=== PATIENT | male | born 1995 | race Caucasian/White ===

== ENCOUNTER 2018-03-07 19:59 | Observation (INO) | payer BC ==
[~2018-03-07 19:59] MED LIST: ISOVUE-370 76%-LOCM 1 ML ONE
[2018-03-07 20:42] LABS: #Lymphocytes 1.1 thou/uL (1.20-3.40); #Monocytes 0.6 thou/uL (0.11-0.59); #Neutrophils 12.3 thou/uL (1.40-6.50); %Basophils 0.1 % (0.0-1.0); %Eosinophils 0.2 % (0.0-10.0); %Lymphocytes 7.6 % (21.0-51.0); %Monocytes 4.4 % (0.0-10.0); %Neutrophils 87.7 % (42.0-75.0); Hemoglobin 15.8 g/dL (14.0-18.0); Mean Corpuscular HGB CONC 33.7 g/dL (32.0-36.0); Mean Corpuscular Hemoglobin 29.7 pg (27.0-31.0); Mean Corpuscular Volume 88.2 fl (80.0-94.0); Mean Platelet Volume 7.1 fL (7.4-10.4); Platelet Count 241 thou/uL (130-400); RBC Distribution Width 11.5 % (11.5-14.5); Red Blood Cell (RBC) Count 5.33 mill/uL (4.70-6.10)
[2018-03-07 20:45] LABS: Bilirubin Negative (Negative); Blood, Urine Negative (Negative); Clarity CLEAR (Clear); Glucose, Urine (Dipstick) 100 mg/dL (Negative); Leukocyte Negative (Negative); Nitrite Negative (Negative); Protein, Urine (Dipstick) Trace mg/dL (Neg-Trace); Specific Gravity, Urine 1.025 (1.002-1.036); Urobilinogen 0.2 mg/dL (0.2-1.0)
[2018-03-07 21:08] LABS: ALT (SGPT) 26 U/L (8-55); AST (SGOT) 21 U/L (5-34); Albumin 5.2 g/dL (3.5-5.0); Alkaline Phosphatase 69 U/L (40-150); Anion Gap 12 mmol/L (10-20); BUN (Urea Nitrogen) 11 mg/dL (8.9-20.6); Bilirubin, Total 0.5 mg/dL (0.2-1.2); Calc. Creatinine Clearance 0 mL/min (70-130); Calcium 9.9 mg/dL (7.8-10.44); Carbon Dioxide 26 mmol/L (22-29); Chloride 99 mmol/L (98-107); Estimated GFR-MDRD 90; Globulin 3.6 g/dL (2.4-3.5); Glucose 125 mg/dL (70-105); Lipase 10 U/L (8-78); Potassium 3.6 mmol/L (3.5-5.1); Protein, Total 8.8 g/dL (6.0-8.3); Sodium 133 mmol/L (136-145)
--- NOTE | 2018-03-07 21:43 | CT ---
CONTRAST ENHANCED CT ABDOMEN AND PELVIS: History: Abdominal pain. Referring physician instructed that only IV contrast should be given. FINDINGS: The lung bases are unremarkable. No evidence of free intraperitoneal air is seen. The liver and spleen are unremarkable. The gallbladder and pancreas are unremarkable. Adrenal glands and kidneys are unremarkable. No evidence of periaortic lymphadenopathy is seen. There is approximately 5.2 mm appendicolith. There is an associated apparently dilated appendix measuring up to 10.4 mm. The appendix appears to be dil ated distal to the appendicolith. A small amount of free pelvic fluid is seen. No obvious evidence of abscess is seen. IMPRESSION: 1. Appendicolith with apparently dilated appendix compatible with acute appendicitis. There does appe ar to be a small amount of free pelvic fluid. POS: FILI
[2018-03-07] MEDS ORDERED: Morphine 4 MG/ML VIAL ONE (21:54)
[2018-03-07] MEDS ORDERED: Piperacillin/Tazobactam 3.375 GM VIAL ONE (21:54)
[2018-03-07] MEDS: Sodium Chloride 0.9% 1,000 ML IV SCH (23:00)
[2018-03-07] MEDS ORDERED: Ondansetron HCl/PF 4 MG/2 ML Vial IVP PRN (23:00)
[2018-03-07] MEDS ORDERED: Ondansetron ODT 4 MG TAB SL PRN (23:00)
[2018-03-07] MEDS ORDERED: Morphine 4 MG/ML VIAL SLOW IVP PRN ×2 (23:01→23:02)
[2018-03-07] MEDS ORDERED: Acetaminophen 1,000 MG in Premix Bag 1 BAG IVPB PRN (23:02)
[2018-03-08] MEDS ORDERED: Piperacillin/Tazobactam 3.375 GM in Sodium Chloride 0.9% 100 ML IVPB SCH ×2 (04:00→11:00)
[2018-03-08] MEDS ORDERED: Bupivacaine/Epinephrine 0.25% 30 ML VIAL ONE (06:38)
[2018-03-08 07:07] VITALS: BMI 21.4
--- NOTE | 2018-03-08 07:39 | HP ---
CHIEF COMPLAINT: Right lower quadrant pain. HISTORY OF PRESENT ILLNESS: This is a 22-year-old male who is a student who presents with a history of pain in his right lower quadrant that started yesterday, associated with nausea, no vomiting, no f damari or chills. He has never had this pain before. He denies a history of chronic abdominal pain. He was seen in the [facility] and a CT scan reveals acute appendicitis, nonperforated . PAST MEDICAL HISTORY: He denies. PAST SURGICAL HISTORY: He denies. MEDICINES TAKEN DAILY: None. ALLERGIES: None. SOCIAL HISTORY: No smoking, alcohol or other drugs. REVIEW OF SYSTEMS: Ten system review of systems otherwise negative unless described above. FAMILY HISTORY: There is no family history of GI malignancy or anesthetic related complication. PHYSICAL EXAMINATION: HEENT: Sclerae are anicteric. Oropharynx clear. NECK: No lymphadenopathy. CHEST: Clear. HEART: Regular rate and rhythm. ABDOMEN: Soft, tender right lower quadrant, localized guarding, no rebound, no abdominal hernias. EXTREMITIES: No ischemia or edema to extremities. LABORATORY AND X-RAY FINDINGS: CT scan reveals acute appendicitis with appendicolith. ASSESSMENT: Acute appendicitis. PLAN: Laparoscopic appendectomy. Risks, benefits, alternatives discussed. He gives consent. We wi ll do this today.
[2018-03-08] MEDS ORDERED: Midazolam HCl 2 mg/2 ml Vial ONE (08:37)
[2018-03-08] MEDS ORDERED: Fentanyl 100 MCG/2 ML VIAL ONE (08:37)
[2018-03-08] MEDS ORDERED: Ondansetron HCl/PF 4 MG/2 ML Vial IVP PRN ×2 (09:32→10:22)
[2018-03-08] MEDS ORDERED: Promethazine HCl 25 MG/ML VIAL IM PRN ×2 (09:32→10:22)
[2018-03-08] MEDS ORDERED: Promethazine HCl 25 MG/ML VIAL SLOW IVP PRN (09:32)
[2018-03-08] MEDS: Sodium Chloride 0.9% 1,000 ML IV SCH (10:21)
[2018-03-08] MEDS ORDERED: Morphine 4 MG/ML VIAL SLOW IVP PRN ×2 (10:22)
[2018-03-08] MEDS ORDERED: Sodium Chloride 0.9% 1,000 ML IV SCH (10:22)
[2018-03-08] MEDS ORDERED: HYDROcodone/Acetaminophen 10/325 mg Tablet PO PRN ×2 (10:22)
[2018-03-08] MEDS ORDERED: Dextrose 50% Abboject 50 ML SYRINGE SLOW IVP PRN (10:22)
[2018-03-08] MEDS ORDERED: Dextrose 5% in Water 1,000 ML IV PRN (10:22)
[2018-03-08] MEDS ORDERED: hydrALAZINE 20 MG/ML VIAL SLOW IVP PRN (10:22)
[2018-03-08] MEDS ORDERED: Succinylcholine Chloride 20 MG/ML 10 ml SYRINGE FS ONE (11:06)
[2018-03-08] MEDS ORDERED: Glycopyrrolate 0.2 MG/ML 5 ML SYRINGE ONE (11:06)
[2018-03-08] MEDS ORDERED: Ondansetron HCl/PF 4 MG/2 ML Vial ONE (11:06)
[2018-03-08] MEDS ORDERED: Ketorolac Tromethamine 30 MG/ML VIAL ONE (11:06)
[2018-03-08] MEDS ORDERED: Dexamethasone 20 MG/5 ML VIAL ONE (11:06)
[2018-03-08] MEDS ORDERED: PROPOFOL 200 MG/20 ML VIAL ONE (11:06)
[2018-03-08 11:51] VITALS: BP 108/66; TEMP 97.9
[2018-03-08] MEDS ORDERED: Famotidine/PF 20 mg/2ml Vial SLOW IVP SCH (21:00)
[2018-03-08] MEDS ORDERED: Famotidine 20 MG TAB PO SCH (21:00)
--- NOTE | 2018-03-09 13:40 | OP ---
DATE OF PROCEDURE: 03/08/2018 PREOPERATIVE DIAGNOSIS: Acute appendicitis. POSTOPERATIVE DIAGNOSIS: Acute appendicitis. PROCEDURE: Laparoscopic appendectomy. SURGEON: Saul Haynes M.D. ANESTHESIA: General. ESTIMATED BLOOD LOSS: Minimal. COMPLICATIONS: None. SPECIMEN: Appendix. FINDINGS: Appendicitis. TECHNIQUE: Patient taken to the operating room and laid supine on the operating room table. After g eneral anesthetic was obtained, the abdomen is prepped and draped in a sterile fashion. Curved incis ion made below the umbilicus. Cautery was used to dissect down to and score the fascia. Abdominal c avity was entered bluntly using a Jayne clamp. Holding stitch of PDS was placed on each side of the fascia. Victoria trocar was placed. High-flow pneumoperitoneum was obtained. Suprapubic 5-mm port an d a left lower quadrant 5-mm port were placed under direct visualization. The cecum was rolled over to reveal acute appendicitis. A window was made at the base of the appendix and the mesoappendix. L aparoscopic stapler was fired across the base of the appendix. A vascular reload was fired across th e mesoappendix. Appendix was placed in an Endo Catch bag and brought out through the [place]. There is no bleeding on the staple line. There was no injury to any intraabdominal structures. There was no evidence of perforation or purulence in the abdomen. The right lower quadrant and pelvis was irri gated using sterile solution. All port sites were infiltrated using local anesthetic. All ports are removed under camera visualization without bleeding and pneumoperitoneum is let down. PDS was used to close the fascial defect below the umbilicus. The incision is irrigated and closed using 4-0 [place] cryl and Dermabond. The patient was en route to recovery in stable condition. All instrument counts , needle counts, lap counts were correct.
== END 2018-03-08 14:36 | disposition home or self-care (01) ==
LOC: ERS 19:59 → SURG B 21:25
PROVIDERS: ADMIT Surgery; ATTEND Surgery
PROC: 0DTJ4ZZ Resection of Appendix, Percutaneous Endoscopic Approach (ICD-10-PCS; principal; 2018-03-08)
DX: K35.80 Unspecified acute appendicitis (principal)
CPT/HCPCS: 74177; 80053; 81003; 83690; 85025; 87086; 88304; 96361; 96365; 96366; 96375; 96376; G0378; J1100; J1885; J2250; J2270; J2405; J2543; J2704; J3010; J7050